=== PATIENT | male | born 1990 | race Two or more races ===

== ENCOUNTER 2016-09-25 12:05 | Emergency (ER) | payer MEDICAID ==
[~2016-09-25] VITALS: Ht 177.8 cm; Wt 98.9 kg
[2016-09-25 12:18] VITALS: BP 127/68
[2016-09-25] MEDS ORDERED: Ketorolac 30mg Inj IV ONE (12:30)
[2016-09-25] MEDS ORDERED: Morphine Sulfate 4mg/ml Inj IVP ONE ×2 (12:30→13:30)
--- NOTE | 2016-09-25 12:35 | Emergency Room Report ---
History of Present Illness General Chief Complaint: Lower Back Pain or Injury Source: Patient Present Illness HPI Patient presents with low back pain which is severe. He was throwing his nephew in the air and something pop in his lower back. He feels the pain radiate down his right leg. The pain is 9/10 burning and aching. Denies any incontinence or fever. There is no numbness. Is having difficulty walking and when he moves he has muscle spasms in his back. He denies dysuria. At 20 he had an accident lifting weights. X-rays done at that time were normal. He hasn't had back problems since that time. He tried taking Tylenol earlier and it hasn't helped her Allergies: Coded Allergies: No Known Allergies (Unverified , 09/25/16) Patient History Past Medical History: see triage record Social History: Denies: smoking Social History Narrative unemployed - girlfriend brought him in Reviewed Nursing Documentation: PMH: Agreed, PSxH: Agreed Nursing Documentation-PMH Past Medical History: No Stated History Review of Systems All Other Systems: negative except mentioned in HPI Physical Exam Vital Signs Date Time Temp Pulse Resp B/P Pulse Ox O2 Delivery O2 Flow Rate FiO2 09/25/16 12:10 98.8 58 18 127/68 99 Room Air Sp02 EP Interpretation: reviewed, normal General Appearance: well appearing, no apparent distress, GCS 15 Head: normocephalic Eyes: bilateral eye PERRL, bilateral eye normal inspection ENT: moist mucus membranes Neck: supple Respiratory: lungs clear, normal breath sounds Cardiovascular #1: regular rate, rhythm Cardiovascular #2: 2+ radial (R) Gastrointestinal: normal inspection, normal bowel sounds, non tender, no mass, non-distended Musculoskeletal: normal range of motion, other - lumbar pain - more R, not bone , SLR + cross over muscle spasms and some pain radiating to buttock with SLR R Neurologic: alert, oriented x3, motor strength/tone normal, DTRs symmetric, sensory intact, cerebellar normal, speech normal Psychiatric: mood/affect normal Reflexes: 2+ knee (R), 2+ knee (L), 2+ ankle (R), 2+ ankle (L) Skin: normal inspection, warm/dry Medical Decision Making Diagnostic Impression: Primary Impression: Low back strain Qualified Codes: S39.012A - Strain of muscle, fascia and tendon of lower back , initial encounter ER Course Patient with lumbar pain radiating to R LE. DDx: disk rupture, strain, sciatica. No red flag symptoms or signs. No x-rays indicated at this time based on mechanism and exam. Focus on analgesia and break pain/spasm cycle. Improved with treatment. Patient stable for outpatient observation and treatment. Last Vital Signs Date Time Temp Pulse Resp B/P Pulse Ox O2 Delivery O2 Flow Rate FiO2 09/25/16 14:44 98.8 62 18 125/67 99 Room Air Status: improved Disposition: HOME, SELF-CARE Condition: Improved Scripts Methocarbamol* (ROBAXIN*) 500 Mg Tablet 500 MG PO TID Y for muscle spasm, #12 TAB 0 Refills Prov: Mario Esposito M.D. 09/25/16 Ibuprofen* (MOTRIN*) 600 Mg Tablet 600 MG ORAL Q6H Y for For Pain, #20 TAB Prov: Mario Esposito M.D. 09/25/16 Hydrocodone Bit/Acetaminophen 5-325* (NORCO 5-325*) 1 Each Tablet 1 TAB ORAL Q6H Y for For Pain, #14 TAB 0 Refills Prov: Mario Esposito M.D. 09/25/16 Mario Esposito M.D. September 25, 2016 12:34
[2016-09-25] MEDS ORDERED: IBUPROFEN600 MG ORAL (14:25)
[2016-09-25] MEDS ORDERED: NORCO 5-325 TA1 EACH ORAL (14:25)
[2016-09-25] MEDS ORDERED: ROBAXIN500 MG PO (14:25)
[2016-09-25 14:43] VITALS: BP 125/67
[2016-09-25 14:44] VITALS: BP 125/67
== END 2016-09-25 14:44 | disposition home or self-care (01) ==
LOC: EMR 12:50
DX: S39.012A Strain of muscle, fascia and tendon of lower back, initial encounter (principal); X50.9XXA Other and unspecified overexertion or strenuous movements or postures, initial encounter; Y93.9 Activity, unspecified; Y92.9 Unspecified place or not applicable
CPT/HCPCS: 96374; 96375; 99284; J1885; J2270; J2405

== ENCOUNTER 2016-10-07 23:51 | Emergency (ER) | payer MEDICAID ==
[~2016-10-07] VITALS: Ht 177.8 cm; Wt 98.9 kg
[~2016-10-07 23:51] MED LIST: IBUPROFEN600 MG ORAL; NORCO 5-325 TA1 EACH ORAL; ROBAXIN500 MG PO
[2016-10-08] VITALS: BP 120/74
[2016-10-08] MEDS ORDERED: KEFLEX500 MG ORAL (00:18)
[2016-10-08] MEDS ORDERED: IBUPROFEN600 MG ORAL (00:18)
--- NOTE | 2016-10-08 00:19 | Emergency Room Report ---
History of Present Illness General Chief Complaint: Lower Extremity Injury Source: Patient Present Illness HPI Is a 26-year-old male with no past medical history. He presents with chief complaint of right toe injury. He was walking to the bathroom and he stubbed his toe on the cabinet floor. The nail from the third right toe came off. Complaining of throbbing pain to that area. No other injury. No active bleeding. Denies any loss of consciousness. Pain is 5/10. Allergies: Coded Allergies: No Known Allergies (Unverified , 09/25/16) Patient History Past Medical History: none, see triage record, old chart reviewed Past Surgical History: none Pertinent Family History: none Social History: Denies: smoking Immunizations: UTD Reviewed Nursing Documentation: PMH: Agreed, PSxH: Agreed Review of Systems Eye: Denies: blurred vision, eye pain ENT: Denies: ear pain, nose congestion, throat swelling Respiratory: Denies: cough, shortness of breath Cardiovascular: Denies: chest pain, palpitations Gastrointestinal: Denies: abdominal pain, diarrhea, nausea, vomiting Musculoskeletal: Denies: back pain, joint pain Skin: Denies: rash Neurological: Denies: headache, numbness Endocrine: Denies: increased thirst, increased urine Hematologic/Lymphatic: Denies: easy bruising All Other Systems: negative except mentioned in HPI Physical Exam Vital Signs Date Time Temp Pulse Resp B/P Pulse Ox O2 Delivery O2 Flow Rate FiO2 10/07/16 23:55 98.1 58 16 125/72 98 Room Air vitals normal Sp02 EP Interpretation: reviewed, normal General Appearance: well appearing, no apparent distress, alert Head: normocephalic, atraumatic Eyes: bilateral eye EOMI, bilateral eye PERRL ENT: hearing grossly normal, normal pharynx Neck: full range of motion, supple, no meningismus Respiratory: chest non-tender, lungs clear, normal breath sounds Cardiovascular #1: regular rate, rhythm, no murmur Gastrointestinal: normal bowel sounds, non tender, no mass, no organomegaly, no bruit, non-distended Musculoskeletal: back normal, gait/station normal, normal range of motion, other - Right third toe: The nail is loose but not completely off. No ecchymosis. No bony tenderness. Neurologic: alert, oriented x3 Psychiatric: mood/affect normal Skin: warm/dry Medical Decision Making Diagnostic Impression: Primary Impression: Nail avulsion of toe Qualified Codes: S91.209A - Unspecified open wound of unspecified toe(s) with damage to nail, initial encounter Additional Impression: Injury of toenail of right foot Qualified Codes: S99.921A - Unspecified injury of right foot, initial encounter ER Course Patient with injury to the right toe. He has a partial toenail avulsion. I doubt only injury or fracture because he has no pain and there is no deformity. Even if there is a tuft fracture treatment is symptomatic. Last Vital Signs Date Time Temp Pulse Resp B/P Pulse Ox O2 Delivery O2 Flow Rate FiO2 10/07/16 23:55 98.1 58 16 125/72 98 Room Air Status: improved Disposition: HOME, SELF-CARE Condition: Stable Scripts Ibuprofen* (MOTRIN*) 600 Mg Tablet 600 MG ORAL THREE TIMES A DAY, #30 TAB 0 Refills Prov: ASHLEE JACOBO M.D. 10/08/16 Cephalexin* (KEFLEX*) 500 Mg Capsule 500 MG ORAL TID, #21 CAP 0 Refills Prov: ASHLEE JACOBO M.D. 10/08/16 Referrals: OTHER,REFERRING (PCP) Additional Instructions: Followup with your DrSadiq in 7 days. Keep wound clean. Be careful with putting on socks or shoes. Your nail will probably fall off. Return if worse. ASHLEE JACOBO M.D. October 08, 2016 00:18
[2016-10-08 00:35] VITALS: BP 120/76
== END 2016-10-08 00:35 | disposition home or self-care (01) ==
LOC: EMR 10-08 00:09
DX: S91.204A Unspecified open wound of right lesser toe(s) with damage to nail, initial encounter (principal); W22.8XXA Striking against or struck by other objects, initial encounter; Y92.89 Other specified places as the place of occurrence of the external cause
CPT/HCPCS: 99284

== ENCOUNTER 2016-11-12 18:17 | Emergency (ER) | payer MEDICAID ==
[~2016-11-12] VITALS: Ht 177.8 cm; Wt 102.1 kg
[~2016-11-12 18:17] MED LIST changes: +KEFLEX500 MG ORAL
[2016-11-12 18:35] VITALS: BP 148/95
[2016-11-12] MEDS ORDERED: Norco 5mg/325mg tab ORAL ONE (18:45)
[2016-11-12] MEDS ORDERED: Ketorolac 60mg Inj IM ONE (18:45)
[2016-11-12] MEDS ORDERED: GABAPENTIN300 MG ORAL (19:04)
[2016-11-12] MEDS ORDERED: TRAMADOL HCL50 MG ORAL (19:04)
[2016-11-12] MEDS ORDERED: IBUPROFEN600 MG ORAL (19:04)
[2016-11-12 19:16] VITALS: BP 148/95
--- NOTE | 2016-11-12 19:25 | Emergency Room Report ---
History of Present Illness General Chief Complaint: Back Injury Source: Patient Present Illness HPI The patient is a 26-year-old male presenting for back pain which radiates down the left leg. The patient has been seen in this emergency department for the same complaint. He states that the back pain began one year prior for no known reason and denies any injury. Pain has been increasing and is a 10 out of 10 dull ache to the lower back and radiates down the left leg. The patient also experiences intermittent numbness and tingling of the left leg as well as an electrical pain sensation. Pain worse with movement of the leg. He has been given prescriptions for pain medication by his primary doctor and states that he has an appointment for an MRI in the coming months. He denies any other symptoms including nausea, vomiting, fever, chills, abdominal pain, incontinence, numbness or tingling of the groin, dysuria Allergies: Coded Allergies: No Known Allergies (Unverified , 09/25/16) Patient History Past Medical History: see triage record Pertinent Family History: none Reviewed Nursing Documentation: PMH: Agreed, PSxH: Agreed Nursing Documentation-PMH Past Medical History: No History, Except For Review of Systems All Other Systems: negative except mentioned in HPI Physical Exam Vital Signs Date Time Temp Pulse Resp B/P Pulse Ox O2 Delivery O2 Flow Rate FiO2 11/12/16 18:28 98.2 60 16 148/95 99 Room Air Sp02 EP Interpretation: reviewed, normal General Appearance: no apparent distress, alert, GCS 15, non-toxic Head: normocephalic, atraumatic Eyes: bilateral eye PERRL, bilateral eye normal inspection ENT: hearing grossly normal, normal pharynx, no angioedema, normal voice Neck: full range of motion, supple/symm/no masses Respiratory: chest non-tender, lungs clear, normal breath sounds, speaking full sentences Cardiovascular #1: regular rate, rhythm, no edema Gastrointestinal: normal bowel sounds, non tender, soft, non-distended, no guarding, no rebound Genitourinary: normal inspection, no CVA tenderness Musculoskeletal: normal range of motion, tender - TTP over the L SI joint and paraspinous muscles Neurologic: alert, oriented x3, responsive, motor strength/tone normal, sensory intact, speech normal Psychiatric: judgement/insight normal, memory normal, mood/affect normal, no suicidal/homicidal ideation Skin: normal color, no rash, warm/dry, well hydrated Medical Decision Making PA Attestation Dr. Rodriguez is my supervising physician. Patient management was discussed with my supervising physician Diagnostic Impression: Primary Impression: Neuropathy Additional Impression: Sciatica of left side ER Course The patient is a 26-year-old male presenting for back pain which radiates down the left leg Ddx considered include but not limited to lumbar strain, degenerative disease, cauda equina, chronic pain, narcotic dependency, sciatica, among others PE: vitals WNL. NAD Back: No midline tenderness. No step-offs. Full active range of motion. There is tenderness to palpation of the left lower back paraspinal muscles and buttock. Normal gait Patient is given IM Toradol and one Burdine in the ER. He is feeling better and then has decreased. He'll be discharged home with a prescription for pain medications and gabapentin. He needs to follow up with primary doctor. He is informed he will need MRI Last Vital Signs Date Time Temp Pulse Resp B/P Pulse Ox O2 Delivery O2 Flow Rate FiO2 11/12/16 18:35 98.2 16 148/95 99 Room Air 11/12/16 18:28 60 Status: improved Disposition: HOME, SELF-CARE Condition: Improved Scripts Tramadol Hcl* (ULTRAM*) 50 Mg Tablet 50 MG ORAL Q6H Y for For Pain, #8 TAB 0 Refills Prov: TERZIAN,ARASELI P.A. 11/12/16 Ibuprofen* (MOTRIN*) 600 Mg Tablet 600 MG ORAL Q8H Y for For Pain, #30 TAB 0 Refills Prov: TERZIAN,ARASELI P.A. 11/12/16 Gabapentin* (GABAPENTIN*) 300 Mg Capsule 300 MG ORAL THREE TIMES A DAY, #30 CAP 0 Refills Prov: TERZIAN,ARASELI P.A. 11/12/16 Patient Instructions: Sciatica, Back Pain, Adult Additional Instructions: I discussed my findings with the patient. All questions and concerns have been answered. Treatment and medication compliance have been addressed. I advised the patient that they need to follow up with PMD in 3-5 days. Return to ED if pain remains or worsens, numbness or tingling occurs, new rash is noticed, fever is noticed, or if needed for any reason. Patient verbalized understanding of discharge instructions. The patient will need an MRI. He agrees and will followup with primary doctor. ARASELI KABA Nov 12, 2016 19:25
== END 2016-11-12 19:16 | disposition home or self-care (01) ==
LOC: EMR 18:48
DX: G62.9 Polyneuropathy, unspecified (principal); M54.32 Sciatica, left side
CPT/HCPCS: 96372; 99284